=== PATIENT | female | born 1995 | race Caucasian/White ===

== ENCOUNTER 2018-01-03 11:27 | Emergency (ER) | payer SELFPAY ==
[~2018-01-03] VITALS: Ht 167.6 cm; Wt 68.0 kg
[~2018-01-03 11:27] MED LIST: PREDNISONE50 M1 PO; ZITHROMAX250 M2 PO
--- NOTE | 2018-01-03 12:12 | ED THROAT/DENTAL COMPLAINT ---
History of Present Illness General Chief Complaint: General Adult Stated Complaint: DX WITH MONO, SORE THROAT Source: patient Exam Limitations: no limitations Vital Signs & Intake/Output Vital Signs & Intake/Output Vital Signs Date Time Temp Pulse Resp B/P B/P Pulse O2 O2 Flow FiO2 Mean Ox Delivery Rate 01/03 1336 99.8 103 18 114/62 96 Room Air 01/03 1211 Room Air 01/03 1133 98.5 109 20 111/74 97 Room Air Allergies Coded Allergies: No Known Allergies (01/01/18) Reconcile Medications Amoxicillin 400 MG/5 ML SUSP.RECON 10 ML PO BID SORE THROAT Azithromycin (Zithromax) 250 MG TABLET 1 DP PO AD STREP 2 the first day followed by 1 for days 2-5 Hydrocodone/Acetaminophen (Hydrocodon-Acetamin 7.5-325/15) 7.5 MG-325 MG/15 ML SOLUTION 5-10 ML PO Q4-6 PRN PAIN Lidocaine HCl (Lidocaine HCl Viscous) 2 % SOLUTION 15 ML PO 4 TIMES/DAY SORE THROAT LIDOCAINE, BENADRYL, MALLOX EQUASL PARTS Prednisone 50 MG TABLET 1 TAB PO DAILY MONO Triage Note: PT TO ED C/O SORE THROAT. CURRENTLY BEING TREATED FOR MONO AND STREP, STATES CANNOT SWALLOW. C/O ABD PAIN "FROM ENLARGED SPLEEN FROM THE MONO". Triage Nurses Notes Reviewed? yes Onset: Abrupt Duration: day(s):, constant Timing: recent history Injury Environment: home No Modifying Factors: none : No Patient currently breastfeeds: No HPI: 22-year-old female comes into the emergency room for further evaluation of sore throat. Patient was seen here the other day. Patient had a positive strep as well as a positive Monospot. She reports increased pain and swelling to her throat and difficulty swallowing. Reports that the left side of her abdomen/rib area hurts. She reports that she was told her spleen was enlarged secondary to mono. (Yoan Tony) Past History Travel History Traveled to [place] past 21 day No Medical History Any Pertinent Medical History? 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 No (Yoan Tony) Review of Systems Review of Systems Constitutional: Reports: see HPI. EENTM: Reports: see HPI. Respiratory: Reports: no symptoms. Cardiovascular: Reports: no symptoms. GI: Reports: see HPI. Genitourinary: Reports: no symptoms. Musculoskeletal: Reports: no symptoms. Skin: Reports: no symptoms. Neurological/Psychological: Reports: no symptoms. Hematologic/Endocrine: Reports: no symptoms. Immunologic/Allergic: Reports: no symptoms. All Other Systems: Reviewed and Negative (Yoan Tony) Physical Exam Physical Exam General Appearance: well developed/nourished, no apparent distress, alert, awake Head: atraumatic Eyes: Bilateral: normal appearance. Nose: normal inspection Mouth/Throat: pharynx swelling, tonsillar exudate, tonsillar swelling Neck: normal inspection, supple Cardiovascular/Respiratory: no respiratory distress Back: normal inspection Neurologic/Psych: awake, alert, oriented x 3 Skin: intact, normal color Core Measures ACS in differential dx? No Sepsis Present: No Sepsis Focused Exam Completed? No (Yoan Tony) Progress Differential Diagnosis: aspirated tooth, carious tooth, Ludwigs angina, odontogenic abscess, vijaya-tonsillar abscess, pharyngeal for. body, stomatitis/ gingivitis, strep pharyngitis, mono Plan of Care: Current Medications Sig/Brandon Start time Last Medication Dose Stop Time Status Admin Sodium Chloride 1,000 ML BOLUS ONE 01/03 1145 AC 01/03 (Normal Saline 0.9%) 01/03 1244 1212 Comments: 01/03/2018 2:17:44 PM After reevaluating the patient she feels significantly better. She is able to drink liquids. Swelling and pain is improved. Patient was switched from erythromycin to amoxicillin. She is to follow-up with primary care doctor as needed. No concern for peritonsillar abscess. She has significant tonsillar swelling that is symmetric bilaterally. No uvular deviation. No hot potato voice. I feel is related from the strep and mono. (Yoan Tony) Departure Departure Disposition: HOME OR SELF CARE Condition: Stable Clinical Impression Primary Impression: Mononucleosis Secondary Impressions: Strep pharyngitis Referrals: Patient Has No Primary Care Dr (PCP/Family) Additional Instructions: Take Vicodin, amoxicillin, Magic mouthwash as prescribed. Follow-up with PCP. Return if any concerns worsening symptoms. Please go over all results of today's visit with your primary care doctor. Contact your primary care doctor to let them know you were here in the emergency room. There may be nonspecific findings which may not be related to your visit today here in the emergency room but may require further evaluation and chronic monitoring by your primary care doctor. If you had a laceration today the chance of foreign body always remains. You should follow-up with your primary care doctor for recheck in 3-5 days for a wound check. If you had an x-ray done there is a chance that a fracture could have been missed on initial read and you should follow-up with your primary care doctor for repeat x-rays if symptoms persist. If your blood pressure was elevated here in the emergency room please have rechecked by [facility] primary care doctor within the next 48. If you were prescribed a narcotic here in the emergency room or any type of controlled substances you're not allowed to drive while taking this medication or operate any type of heavy machinery. Narcotics can make you feel lightheaded dizziness nausea and can cause constipation. You may need to pick up operator a stool softener. Thank you for choosing [facility] emergency room. Please return to the emergency room immediately if you have any other concerns worsening of symptoms. Departure Forms: Customer Survey General Discharge Information Prescriptions: Current Visit Scripts Hydrocodone/Acetaminophen (Hydrocodon-Acetamin 7.5-325/15) 5-10 ML PO Q4-6 PRN PAIN #100 ML Amoxicillin 10 ML PO BID #200 ML Lidocaine HCl (Lidocaine HCl Viscous) 15 ML PO 4 TIMES/DAY #100 ML LIDOCAINE, BENADRYL, MALLOX EQUASL PARTS (Yoan Tony) PA/EMERGENCY OPERATOR Co-Sign Statement Statement: ED Attending supervision documentation- [] I saw and evaluated the patient. I have also reviewed all the pertinent lab results and diagnostic results. I agree with the findings and the plan of care as documented in the PA's/EMERGENCY OPERATOR's documentation. [X] I have reviewed the ED Record and agree with the PA's/EMERGENCY OPERATOR's documentation. [] Additions or exceptions (if any) to the PAs/EMERGENCY OPERATOR's note and plan are summarized below: [] (Nely DELGADO,Guy Garcia)
[2018-01-03 13:36] VITALS: BP 114/62
[2018-01-03] MEDS ORDERED: AMOXICILLI400 MG/51 PO (13:41)
[2018-01-03] MEDS ORDERED: LIDOCAINE HCL V15 ML PO (13:41)
[2018-01-03] MEDS ORDERED: HYDROCODON-ACE118 ML PO (13:41)
== END 2018-01-03 13:57 ==
LOC: ERH 11:27
DX: B27.90 Infectious mononucleosis, unspecified without complication (principal); J02.0 Streptococcal pharyngitis
CPT/HCPCS: 96374; 96375; J1885

== ENCOUNTER 2018-01-11 09:01 | Emergency (ER) | payer SELFPAY ==
[~2018-01-11] VITALS: Ht 165.1 cm; Wt 68.0 kg
[~2018-01-11 09:01] MED LIST changes: +AMOXICILLI400 MG/51 PO; +HYDROCODON-ACE118 ML PO; +LIDOCAINE HCL V15 ML PO
[2018-01-11 09:11] VITALS: BP 96/64
[2018-01-11] MEDS ORDERED: HYDROXYZINE HCL50 M1 PO (09:40)
[2018-01-11] MEDS ORDERED: PREDNISONE10 M2 PO ×2 (09:40→09:55)
--- NOTE | 2018-01-11 09:40 | ED SKIN/ALLERGY COMPLAINT ---
History of Present Illness General Chief Complaint: Skin Rash/ Abcess Stated Complaint: RASH Source: patient Exam Limitations: no limitations Vital Signs & Intake/Output Vital Signs & Intake/Output ED Intake and Output 01/12 0000 01/11 1200 Intake Total Output Total Balance Patient 150 lb Weight Allergies Coded Allergies: amoxicillin (Intermediate, RASH 01/11/18) Reconcile Medications Amoxicillin 400 MG/5 ML SUSP.RECON 10 ML PO BID SORE THROAT Azithromycin (Zithromax) 250 MG TABLET 1 DP PO AD STREP 2 the first day followed by 1 for days 2-5 Hydrocodone/Acetaminophen (Hydrocodon-Acetamin 7.5-325/15) 7.5 MG-325 MG/15 ML SOLUTION 5-10 ML PO Q4-6 PRN PAIN Hydroxyzine HCl (hydrOXYzine HCl) 50 MG TABLET 1 TAB PO TID PRN ITCHING Hydroxyzine Hydrochloride (Atarax) 50 MG TAB 1 TAB PO TID PRN ITCHING Lidocaine HCl (Lidocaine HCl Viscous) 2 % SOLUTION 15 ML PO 4 TIMES/DAY SORE THROAT LIDOCAINE, BENADRYL, MALLOX EQUASL PARTS Prednisone 50 MG TABLET 1 TAB PO DAILY MONO Prednisone 10 MG TABLET 1 DOSE PO ONCE DAILY RASH 5 TABS X 3 DAYS 4 TABS X 3 DAYS 3 TABS X 3 DAYS 2 TABS X 3 DAYS 1 TAB X 3 DAYS Prednisone 10 MG TABLET 1 DOSE PO ONCE DAILY RASH 5 TABWS X 3 DAYS 4 TABS X 3 DAYS 3 TABS X 3 DAYS 2 TABS X 3 DAYS 1 TAB X 3 DAYS Triage Note: 22F STARTED ON AMOX FOR STREP AND DEVELOPED A RASH TO ENTIRE BODY YESTERDAY. HAS NOT TAKEN LAST TWO DOSES AND RASH GETTING WORSE DESPITE BENADRYL (LAST DOSE 5AM 25MG) . DENIES DIFF BREATHING OR HOARSENESS, NO OROPHARYNGEAL EDEMA. SWELLING NOTED TO TONSILS R>L. NO EXUDATE. Triage Nurses Notes Reviewed? yes Onset: Abrupt Duration: day(s): (2-3), constant, continues in ED, getting worse Timing: single episode today Severity: mild, moderate Severity Numbers: 6 Location: generalized Possible Factors: no cause identified No Modifying Factors: none LMP (ages 10-50): unknown : No Patient currently breastfeeds: No HPI: 22-year-old female with no medical history presents for evaluation of a rash. Patient was diagnosed with mono and strep throat about 10 days ago. She was initially started on Zithromax but then her throat got worse so was changed to amoxicillin. She reports that her throat is much better but that now she developed a diffuse rash. The rash is mostly on her trunk and bilateral extremities and is very itchy. No swelling of the lips or tongue or throat no difficulty breathing or difficulty swallowing. She has tolerated amoxicillin in the past. Past History Travel History Traveled to [place] past 21 day No Medical History Any Pertinent Medical History? 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 No Review of Systems Review of Systems Constitutional: Reports: no symptoms. EENTM: Reports: no symptoms. Respiratory: Reports: no symptoms. Cardiovascular: Reports: no symptoms. GI: Reports: no symptoms. Genitourinary: Reports: no symptoms. Musculoskeletal: Reports: no symptoms. Skin: Reports: see HPI, rash. Neurological/Psychological: Reports: no symptoms. Hematologic/Endocrine: Reports: no symptoms. Immunologic/Allergic: Reports: no symptoms. All Other Systems: Reviewed and Negative Physical Exam Physical Exam General Appearance: well developed/nourished, no apparent distress, alert, awake Head: atraumatic, normal appearance Eyes: Bilateral: normal appearance, PERRL, EOMI. Ears, Nose, Throat: hearing grossly normal, TONSILS ARE 3+ BILATERALLY WITHOUT ERYTHEMA OR EXUDATE. NO TONSILAR DEIVATION. PT IS HANDELING SECRETIONS. Neck: normal inspection, supple, full range of motion Respiratory: normal breath sounds, chest non-tender, no respiratory distress, lungs clear Cardiovascular: regular rate/rhythm, normal peripheral pulses Peripheral Pulses: 2+ radial (R), 2+ radial (L) Gastrointestinal: normal bowel sounds, soft, non-tender, no organomegaly Back: normal inspection, normal range of motion Extremities: normal inspection, normal range of motion, no edema Neurologic/Psych: no motor/sensory deficits, awake, alert, oriented x 3, normal gait Skin: intact, normal color, warm/dry, rash Skin Problem Location: generalized Skin Problem Character: THERE IS A DIFFUSE MACULAR-PAPULAR ERYTHEMAOUS RASH ON THE TRUCH AND BILATERAL UPPER EXTREITIES INLCUDING THE BILATERAL PALMS. NO SWELLING OR DISCHARGE Lymphatic: no anterior cervical nick Progress Differential Diagnosis: allergic reaction, anaphylaxis, angioedema, contact dermatitis, drug reaction, urticaria, MONO RASH Plan of Care: Patient is here with a rash after being diagnosed with mono and started on amoxicillin. Is unclear if this is a mono rash versus allergic reaction. Either way patient has taken the amoxicillin for 8 days +2 days of Zithromax. The antibiotic will be discontinued. She will be given a prescription for a prednisone burst and instructed to use Benadryl as needed for itching. Continue symptomatic treatment. Discussed return precautions patient agrees the plan Departure Departure Disposition: HOME OR SELF CARE Condition: Stable Clinical Impression Primary Impression: Infectious mononucleosis Qualifiers: Infectious mononucleosis etiology: unspecified organism Infectious mononucleosis complication: other complications Qualified Code: B27.99 - Infectious mononucleosis, unspecified with other complication Referrals: Patient Has No Primary Care Dr (PCP/Family) Additional Instructions: Discontinue amoxicillin. Take prednisone as directed for the full course. Hydroxyzine for itching. Make a follow-up with the primary care doctor for recheck in a few days. Monitor symptoms closely if you notice any difficulty breathing difficulty swallowing swelling of her lips tongue or throat return immediately. Departure Forms: Customer Survey General Discharge Information Prescriptions: Current Visit Scripts Prednisone 1 DOSE PO ONCE DAILY #1 DP 5 TABS X 3 DAYS 4 TABS X 3 DAYS 3 TABS X 3 DAYS 2 TABS X 3 DAYS 1 TAB X 3 DAYS Hydroxyzine Hydrochloride (Atarax) 1 TAB PO TID PRN ITCHING #30 TAB Prednisone 1 DOSE PO ONCE DAILY #1 DP 5 TABWS X 3 DAYS 4 TABS X 3 DAYS 3 TABS X 3 DAYS 2 TABS X 3 DAYS 1 TAB X 3 DAYS Hydroxyzine HCl (hydrOXYzine HCl) 1 TAB PO TID PRN ITCHING #30 TAB
[2018-01-11] MEDS ORDERED: HYDROXYZINE HCL50 M2 PO (09:55)
== END 2018-01-11 09:52 ==
LOC: ERH 09:01
DX: B27.90 Infectious mononucleosis, unspecified without complication (principal)